=== PATIENT | female | born 1995 | race African-American/Black ===

== ENCOUNTER 2017-11-27 19:05 | Emergency (ER) | payer OTHER ==
[~2017-11-27] VITALS: Ht 162.6 cm; Wt 76.6 kg
[~2017-11-27 19:05] MED LIST: ~No Medications
[2017-11-27 19:43] LABS: HEMATOCRIT 38.1 % (36.0-46.0); MCH 30.7 PG (29.0-34.0); MCHC 34.1 G/DL (30.0-36.0); MCV 89.9 FL (83-99); PLATELET COUNT 281 K/uL (156-360); RBC DIS.WIDTH-CV 12.5 % (11.8-14.6); RBC DIS.WIDTH-SD 40.9 % (39-53); RED BLOOD COUNT 4.24 M/uL (3.80-5.20); WHITE BLOOD COUNT 10.1 K/uL (4.1-10.2)
[2017-11-27 19:55] LABS: ALBUMIN 4.1 g/dL (3.2-4.8); CHLORIDE 105 mEq/L (99-109); POTASSIUM 3.8 mEq/L (3.7-5.4); SODIUM 141 mEq/L (136-147)
[2017-11-27 19:57] LABS: GLUCOSE 91 mg/dL (70-99); TOTAL PROTEIN 7.7 g/dL (6.4-8.3)
[2017-11-27 19:59] LABS: TOTAL BILIRUBIN 0.3 mg/dL (0.0-1.0)
[2017-11-27 20:01] LABS: ALKALINE PHOSPHATASE 89 IU/L (3-129); CREATININE 0.8 mg/dL (0.6-1.3); GFR ESTIMATE (CALCULATED) > 59 mL/min/
[2017-11-27 20:02] LABS: UREA NITROGEN (BUN) 6 mg/dL (9-23)
[2017-11-27 20:03] LABS: AST (GOT) 15 IU/L (2-34)
[2017-11-27 20:04] LABS: ALT (GPT) 11 IU/L (3-49)
[2017-11-27 20:11] LABS: QUANTITATIVE HCG < 4.0 MIU/ML
[2017-11-27] MEDS ORDERED: MOTRIN800 MG PO (21:18)
[2017-11-27] MEDS ORDERED: PEN-VEE K,VEET500 MG PO (21:18)
[2017-11-27 21:56] VITALS: BP 110/76
== END 2017-11-27 21:57 | disposition home or self-care (01) ==
LOC: EME 19:05
DX: J02.0 Streptococcal pharyngitis (principal); R00.0 Tachycardia, unspecified; H92.01 Otalgia, right ear; R51 Headache
CPT/HCPCS: 80053; 84702; 85027; 99281; 99283